=== PATIENT | female | born 1990 | race Caucasian/White ===

== ENCOUNTER 2022-11-18 07:08 | Emergency (ER) | payer SELFPAY ==
[~2022-11-18] VITALS: Ht 170.2 cm; Wt 60.0 kg
[2022-11-18 07:13] VITALS: BP 121/77; PULSE 70; RESP 16; TEMP 98.4; O2SAT 97
== END 2022-11-18 07:35 | disposition home or self-care (01) ==
LOC: ER 07:08
DX: F19.10 Other psychoactive substance abuse, uncomplicated (principal); F31.9 Bipolar disorder, unspecified
CPT/HCPCS: 99283